=== PATIENT | male | born 1945 | race Caucasian/White ===

== ENCOUNTER 2021-02-19 14:14 | Observation (INO) ==
[2021-02-19] MEDS ORDERED: MAGNESIUM HYDROXIDE 30 ML ORAL.SUSP PO PRN (14:41)
[2021-02-19] MEDS ORDERED: morphine 4 MG/ML VIAL IV PRN (14:41)
[2021-02-19] MEDS ORDERED: ONDANSETRON 4 MG/2 ML VIAL IV PRN (14:41)
[2021-02-19] MEDS ORDERED: MAG HYDROX/AL HYDROX/SIMETH 30 ML ORAL.SUSP PO PRN (14:41)
[2021-02-19] MEDS ORDERED: oxyCODONE/APAP 5/325MG TABLET PO PRN (14:41)
[2021-02-19] MEDS: DEXTROSE 5%-1/2NS W/20MEQ KCL 1,000 ML IV SCH (15:30)
--- NOTE | 2021-02-19 15:53 | Urology History & Physical ---
HPI History of Present Illness Patient information: Note initiated : 02/19/21 at 3:46 pm Service Date, if different from initiated Date: [] Patient: Greg Proctor a 75 y/o M admitted on 02/19/21 for Gross Hematuria. Chief Complaint: [Gross hematuria with clot retention] History of present illness: Greg is a 75-year-old male with a history of urin gabriel retention and a suprapubic catheter. On January 30 I performed a transurethral resection of the prostate. In the office he passed a voiding trial. We left the suprapubic catheter in place for a full week to ensure that he did not need to use it before removing it. The suprapubic catheter was removed in the office on February 11. The patient resumed his Eliquis as he did not have any signs of bleeding. Last night the patient called me as well as several times this morning saying that he was having gross blood and difficulty emptying due to clot retention. He lives about an hour [place] a half away in [place]. He was in significant discomfort and I advised him to go to the closest emergency department and have them call me. At that ER they placed a 24 Kenyan catheter and drained 500 mL from the bladder with clot. The patient and his then drove here for further evaluation emergently. They presented to my office with dark red blood and clots in his drainage bag. In the office I performed hand irrigation and removed approximately 200 mL of clot from the catheter. I then exchanged the catheter for a 24 Kenyan three-way hematuria catheter with a 30 cc balloon. The balloon was inflated with 30 mL of sterile water was again irrigated and a few more clots were removed. The patient was then sent over to the hospital for admission overnight for continuous bladder irrigation as I do not wish him to travel home when he lives so far away. Review of Systems All systems: reviewed and no additional remarkable complaints except as stated Constitutional Constitutional: Present as per HPI; Absent chills, fever(s) and headache(s) Cardiovascular Cardiovascular: Absent chest pain at rest Genitourinary Genitourinary: change in urinary stream, difficulty urinating, hematuria and nocturia PFSH PFSH All Active Problems Gross hematuria (Acute) Urinary retention (Acute) BPH (benign prostatic hyperplasia) (Acute) Blocked suprapubic catheter (Chronic) DJD (degenerative joint disease) (Chronic) Malignant neoplasm (Chronic) Vitamin D deficiency (Acute) Hiatal hernia (Acute) Pain in right knee (Acute) Right hip pain (Acute) Inguinal pain (Acute) Sensorineural hearing loss (Acute) Male erectile disorder (Acute) GERD (gastroesophageal reflux disease) (Acute) Arrhythmia (Acute) Polyp of colon (Acute) Chang's esophagus (Acute) Chronic prostatitis (Acute) Elevated PSA (Acute) Medical History Arrhythmia Chang's esophagus Blocked suprapubic catheter BPH (benign prostatic hyperplasia) DJD (degenerative joint disease) Erectile disorder due to medical condition in male GERD (gastroesophageal reflux disease) Hiatal hernia Incontinence of urine Inguinal pain Male erectile disorder Malignant neoplasm Pain in right knee Polyp of colon Right hip pain Sensorineural hearing loss Vitamin D deficiency Surgical History History of colonoscopy History of total hip arthroplasty Right S/P hernia repair Family History Other No pertinent family history Social History marital status: occupational status: retired smoking status: Former smoker alcohol intake frequency: does not drink MEDS/ALLERGIES Home Medications and Allergies Home Medications Medication Instructions Recorded Confirmed Type omeprazole 20 mg capsule,delayed 20 mg PO QDAY 10/29/20 02/19/21 History release metoprolol succinate 25 mg 25 mg PO QDAY 11/01/20 02/19/21 History tablet,extended release 24 hr Allergies Allergy/AdvReac Type Severity Reaction Status Date / Time Iodinated Contrast Media Allergy Intermediate Rash Verified 02/11/21 10:21 Physical Examination Vital Signs Vital signs: Temp Pulse Resp BP Pulse Ox 97.4 F 75 16 126/82 97 02/19/21 15:00 02/19/21 15:00 02/19/21 15:00 02/19/21 15:00 02/19/21 15:00 General physical appearance General physical exam: well developed, well nourished and no distress Eyes Eye exam: PERRL ENT ENT exam: normal pinna and normal mucosa Head Head exam IM: Present atraumatic, normal inspection and normocephalic Neck Neck exam: trachea midline Cardiovascular Cardiovascular exam IM: Present normal rate and rhythm Respiratory Respiratory exam: normal respiratory effort and clear to auscultation Abdomen Abdomen: Present soft and non tender; Absent distended Genitourinary Genitourinary (Male): Present normal penis with no external lesions, testicles present and other (24 Kenyan three-way Kerns catheter in place with gross hematuria) Neurologic Neurologic: Present normal coordination and normal sensation Musculoskeletal Musculoskeletal: Present normal gait Psychiatric Psychiatric: Present oriented to time, oriented to person, oriented to place, speech is normal and memory intact Results Labs Result diagrams: 02/19/21 15:35 02/19/21 15:35 Labs: All other labs normal. A/P Narrative A/P Narrative: Greg is a 75-year-old male who is approximately 3 weeks status post transurethral resection of the prostate. Postoperatively he passed a voiding trial in the office. 1 week later we removed the suprapubic catheter and he did well until yesterday when he began to have gross hematuria and clot retention. He had restarted his Eliquis which likely made routine postoperative bleeding into something more. He was originally seen today in the emergency department in [place] where a 24 Kenyan two-way catheter was placed. He then presented to my office where I hand irrigated his bladder and exchanged the catheter for three-way Kerns catheter. Because he lives so far away I would like to admit him at least overnight for continuous bladder irrigation until the bleeding stops. He was on Eliquis which I asked him to hold as of yesterday. His last dose was approximately 24 hours ago. We will monitor his hemoglobin and hematocrit. We will provide continuous bladder irrigation and hand irrigation as needed. I will keep him n.p.o. after midnight just in case we need to go to the operating room tomorrow. Routine labs will be obtained. I have discussed this plan with the patient and his . Time Spent With Patient Time: Total time spent is greater than 50% in coordination of care (as documented) at patient's floor/unit and/or counseling patient: Total time spent with greater than 50% in coordination of care (as documented) at patient's floor/unit and/or counseling patient:: 25 - 35 minutes
[2021-02-19] MEDS: 0.9 % SODIUM CHLORIDE 10 ML SYRINGE IV SCH (20:42)
[2021-02-19 21:21] LABS: Hematocrit 38.5 % (40.1-51.0); Hemoglobin 12.4 g/dL (13.7-17.5); Mean Cell Volume 88.7 fL (80.0-100.0); Mean Corpuscular HGB Conc 32.2 g/dL (31.0-36.0); Mean Platelet Volume 10.3 fL (7.4-10.4); Platelet Count 237 K/mcL (140-440); RBC 4.34 M/mcL (4.63-6.08); Red Cell Distribution Width 13.6 % (11.5-14.5); WBC 8.3 K/mcL (4.5-11.0)
[2021-02-19 22:31] LABS: Blood Urea Nitrogen 16 mg/dL (8-23); Calcium 9.2 mg/dL (8.6-10.4); Carbon Dioxide 22 mmol/L (22-30); Chloride 96 mmol/L (96-108); Glomerular Filtration Rate 92; Glucose 90 mg/dL (70-105)
[2021-02-20] MEDS: 0.9 % SODIUM CHLORIDE 10 ML SYRINGE IV SCH ×3 (04:49→20:06)
--- NOTE | 2021-02-20 09:04 | Urology Progress Note ---
SUBJECTIVE Subjective Patient information: Note initiated : 02/20/21 at 9:01 am Service Date, if different from initiated Date: [] Patient: Greg Proctor 75 y/o M admitted on 02/19/21 for Gross Hematuria. Chief Complaint: [Gross hematuria] Principal diagnosis: Gross hematuria Interval history: The patient is admitted to the hospital yesterday afternoon for continuous bladder irrigation due to gross hematuria occurring approximately 3 weeks status post transurethral resection of the prostate. 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 Urine today is a clear light pink to red color with slow irrigation. He is feeling well. He has been n.p.o. overnight. Constitutional Vitals: Vital Signs Temp Pulse Resp BP Pulse Ox 97.8 F 56 L 14 123/77 96 02/20/21 06:40 02/20/21 06:40 02/20/21 06:40 02/20/21 06:40 02/20/21 06:40 Period Temp Pulse Resp BP Sys/Tavarez Pulse Ox Last 24 Hr 97.4 F-98 F 56-75 14-20 113-126/70-82 95-97 Intake and Output 02/19/21 02/20/21 02/20/21 21:59 05:59 13:59 Intake Total 3000 3200 Output Total 6050 Balance 3000 -2850 Weight 100.244 kg Intake & Output: Intake & Output 02/19/21 02/20/21 02/20/21 21:59 05:59 13:59 Intake Total 3000 3200 Output Total 6050 Balance 3000 -2850 Weight 100.244 kg Intake: Oral 200 CBI Fluid 3000 3000 Output: CBI Fluid 6050 Other: Urine Appearance Hematuria 3-way Urethral Clear Hematuria Uretheral (Kerns) Hematuria Small Blood Clots Urine Color Bright Red 3-way Urethral Blood Tinged Uretheral (Kerns) Dark Red Net CBI 3050 A/P Narrative A/P Narrative: Today I explained to the patient and his again that all patients after transurethral resection of the prostate will have some bleeding about 3 weeks after surgery. The area that is resected form scab when the scab forms off most people have transient bleeding for 1 to 2 days. In him this problem is been compounded by his increased activity and the fact that he restarted Eliquis. He was supposed to restart the Eliquis but he was supposed to perform only light activity. He has been n.p.o. overnight we discussed that we could go back to the operating room for fulguration of bleeding however every time I do your procedure new scab will form and when that falls off you will bleed again so this problem will likely recur. He stopped his Eliquis 24 hours ago. He takes about 48 hours for to get out of his system and therefore I believe that the bleeding will likely stop within 48 hours without intervention. I would like to keep him 1 more night with continuous irrigation. I am very hopeful that the bleeding will stop on its own by tomorrow and then we will be able to send him home. I will allow him to eat today. He and his are comfortable with this plan. Time Spent With Patient Time: Total time spent is greater than 50% in coordination of care (as documented) at patient's floor/unit and/or counseling patient: Total time spent with greater than 50% in coordination of care (as documented) at patient's floor/unit and/or counseling patient:: 15 - 24 minutes
[2021-02-20] MEDS: DEXTROSE 5%-1/2NS W/20MEQ KCL 1,000 ML IV SCH (11:09)
[2021-02-21] MEDS: 0.9 % SODIUM CHLORIDE 10 ML SYRINGE IV SCH (04:52)
[2021-02-21] MEDS: DEXTROSE 5%-1/2NS W/20MEQ KCL 1,000 ML IV SCH (07:15)
--- NOTE | 2021-02-21 07:17 | Urology Progress Note ---
SUBJECTIVE Subjective Patient information: Note initiated : 02/21/21 at 7:13 am Service Date, if different from initiated Date: [] Patient: Greg Proctor 75 y/o M admitted on 02/19/21 for Gross Hematuria. Chief Complaint: [Gross hematuria] Principal diagnosis: Gross hematuria Interval history: Greg is doing much better this morning. He is feeling well. Continuous bladder irrigation was run overnight and a slow drip in the urine this morning is clear yellow with some whitish debris. Constitutional Vitals: Vital Signs Temp Pulse Resp BP Pulse Ox 97.7 F 60 16 123/87 98 02/21/21 07:12 02/21/21 07:12 02/21/21 07:12 02/21/21 07:12 02/21/21 07:12 Period Temp Pulse Resp BP Sys/Tavarez Pulse Ox Last 24 Hr 97.4 F-98.2 F 55-73 14-17 122-127/77-87 94-98 Intake and Output 02/20/21 02/21/21 02/21/21 21:59 05:59 13:59 Intake Total 4810 4400 Output Total 4050 5100 Balance 760 -700 Weight 100.244 kg Intake & Output: Intake & Output 02/20/21 02/21/21 02/21/21 21:59 05:59 13:59 Intake Total 4810 4400 Output Total 4050 5100 Balance 760 -700 Weight 100.244 kg Intake: Oral 1810 500 CBI Fluid 3000 3900 Output: CBI Fluid 4050 5100 Other: Meal Dinner Percent of Meal Consumed 100% Feeding Ability Independent Urine Appearance Hematuria Urine Color 3-way Urethral [place] Net CBI 1050 600 General appearance: average body habitus, cooperative and no acute distress Head Head exam: Present atraumatic, normal inspection and normocephalic Neck Neck exam: Present normal inspection Respiratory Respiratory exam: Present normal respiratory exam and CTAB Cardiovascular Cardiovascular exam: Present normal rate and rhythm GI/Abdominal GI/Abdominal exam: Present soft; Absent distended and tenderness exam: Present normal inspection Expanded Exam Urine Appearance: Sediment Urine Color: Straw Neurological Exam Additional comments: Resting in bed Psychiatric Psychiatric exam: Present normal affect and normal mood Additional findings Additional findings: Three-way Kerns catheter remains in place and is draining well. A/P Narrative A/P Narrative: The urine is cleared after being on Eliquis for 48 hours. I will stop the irrigation this morning and check back with him in a few hours to e nsure that the urine remains clear. If it does remain clear he will likely go home today with the Kerns catheter for a few days. I will then remove the Kerns catheter in the office next week. We will reevaluate around around lunchtime. Time Spent With Patient Time: Total time spent is greater than 50% in coordination of care (as documented) at patient's floor/unit and/or counseling patient: Total time spent with greater than 50% in coordination of care (as documented) at patient's floor/unit and/or counseling patient:: 15 - 24 minutes
--- NOTE | 2021-02-21 07:19 | Urology Progress Note ---
SUBJECTIVE Subjective Patient information: Note initiated : 02/21/21 at 7:17 am Service Date, if different from initiated Date: [02/20/2021] Patient: Greg Proctor 75 y/o M admitted on 02/19/21 for Gross Hematuria. Chief Complaint: [Gross hematuria] Principal diagnosis: Gross hematuria Constitutional Vitals: Vital Signs Temp Pulse Resp BP Pulse Ox 97.7 F 60 16 123/87 98 02/21/21 07:12 02/21/21 07:12 02/21/21 07:12 02/21/21 07:12 02/21/21 07:12 Period Temp Pulse Resp BP Sys/Tavarez Pulse Ox Last 24 Hr 97.4 F-98.2 F 55-73 14-17 122-127/77-87 94-98 Intake and Output 02/20/21 02/21/21 02/21/21 21:59 05:59 13:59 Intake Total 4810 4400 1000 Output Total 4050 5100 Balance 760 -700 1000 Weight 100.244 kg Intake & Output: Intake & Output 02/20/21 02/21/21 02/21/21 21:59 05:59 13:59 Intake Total 4810 4400 1000 Output Total 4050 5100 Balance 760 -700 1000 Weight 100.244 kg Intake: IV 1000 Dextrose 5%-1/2Ns W/20Meq KCl 1 1000 ,000 ml @ 50 mls/hr IV .Q20H [facility] Rx#:[id number] Oral 1810 500 CBI Fluid 3000 3900 Output: CBI Fluid 4050 5100 Other: Meal Dinner Percent of Meal Consumed 100% Feeding Ability Independent Urine Appearance Hematuria Sediment Urine Color Straw 3-way Urethral [place] Net CBI 1050 600 A/P Narrative A/P Narrative: At around 11 AM on February 20 I performed hand irrigation of the patient's catheter with approximately 1 mL of sterile water via Tia syringe to ensure that there were no further clots. A few small clots were obtained but the urine ran clear to clear pink. We discussed keeping him at least another 24 hours to ensure that the urine clears once his Eliquis is out of his system. He agrees with this plan. Time Spent With Patient Time: Total time spent is greater than 50% in coordination of care (as documented) at patient's floor/unit and/or counseling patient:
[2021-02-21] MEDS ORDERED: OMEPRAZOLE 20 MG CAPSULE PO SCH (07:30)
[2021-02-21] MEDS ORDERED: TAMSULOSIN 0.4 MG CAPSULE PO SCH (09:00)
[2021-02-21] MEDS ORDERED: METOPROLOL SUCCINATE 25 MG TAB.XL.24H PO SCH (09:00)
[2021-02-21] MEDS ORDERED: SULFAMETHOXAZOLE/TRIMETHOPRIM 1 TABLET PO SCH (09:00)
[2021-02-21] MEDS ORDERED: FINASTERIDE 5 MG TABLET PO SCH (09:00)
--- NOTE | 2021-02-21 13:03 | Discharge Summary ---
Discharge Provider Provider Patient information: Note initiated : 02/21/21 at 12:57 pm Service Date, if different from initiated Date: [] Patient: Greg Proctor 75 y/o M admitted on 02/19/21 for Gross Hematuria. Chief Complaint: [Gross hematuria] Date of admission: 02/19/21 14:40 Discharge date: 02/21/21 Primary care physician: Umang Stone Admitting clinician: Dudley Ramey Attending physician on admission: Dudley Ramey Attending physician on discharge: Dudley Ramey Discharging clinician: Dudley Ramey COURSE Hospital Course Hospital course: The patient was admitted to the hospital for continuous bladder irrigation for hematuria that occurred 3 weeks status post TURP. The patient was on Eliquis. We held the Eliquis and once that wore off in 48 hours the hem aturia cleared the patient will be sent home on hospital day #3 with a Kerns catheter in place. He will continue to hold his Eliquis until follow-up with me early next week. Discharge diagnosis: Gross hematuria status post transurethral resection of the prostate. Reason for admission: Gross hematuria while on anticoagulation after TURP Procedures: Continuous bladder Pertinent studies/significant findings: None Complications: None Time Spent with Patient Time attestation: Total time spent providing and/or coordinating discharge services: Time spent: Less than 30 minutes Specific discharge activities: Light activity only. Physical Examination Vital Signs Vital signs: Temp Pulse Resp BP Pulse Ox 97.6 F 68 16 117/76 96 02/21/21 12:00 02/21/21 12:00 02/21/21 12:00 02/21/21 12:00 02/21/21 12:00 General physical appearance General physical exam: well developed, well nourished and no distress Eyes Eye exam: PERRL Head Head exam IM: Present atraumatic, normal inspection and normocephalic Neck Neck exam: trachea midline Respiratory Respiratory exam: normal respiratory effort Abdomen Abdomen: Present soft and non tender Genitourinary Genitourinary (Male): Present normal penis with no external lesions Neurologic Neurologic: Present normal coordination Musculoskeletal Musculoskeletal: Present normal gait Psychiatric Psychiatric: Present oriented to time, oriented to person, oriented to place and speech is normal Additional Findings Additional exam: Ureter is cleared in the tubing. Discharge Plan Patient/Caregiver Discharge Instructions Activity: as instructed and other Diet: Regular Diet Instructions: Kerns Catheter Placement and Care (DC), Urinary Leg Bag (GEN) Activity Restrictions/Additional Instructions: Light activity only light activity only until follow-up. Prescriptions: New sulfamethoxazole-trimethoprim [Bactrim DS] 800-160 mg tablet 1 tab PO BID Qty: 14 RF: 0 No Action omeprazole 20 mg capsule,delayed release(DR/EC) 20 mg PO QDAY RF: 0 Eliquis 5 mg Tablet 5 mg PO DAILY RF: 0 tamsulosin [Flomax] 0.4 mg Capsule 0.4 mg PO DAILY RF: 0 finasteride 5 mg Tablet 5 mg PO QDAY RF: 0 metoprolol succinate 25 mg tablet extended release 24 hr 25 mg PO QDAY RF: 0 Follow Up Plan Follow up with: Dudley Ramey MD [Physician] - (Follow up to be seen on Wednesday or Wednesday or . Please call the office early Wednesday morning.) Patient Disposition: Home, Self-Care Hospital Course: Greg was admitted to the hospital with gross hematuria approximately 3 weeks after transurethral section of the prostate. He had restarted his Eliquis on my advice but once bleeding recurred I asked him to hold it again. I hand irrigated his bladder and removed clot. Continuous bladder irrigation was then started. Once the Eliquis wore off in 48 hours the hematuria resolved. Plan of Treatment: The patient will go home with a Kerns catheter in place. He will be provided a leg bag and night bag. I will place him on Bactrim DS to prevent urinary tract infection. I will see him in the office on Wednesday or Wednesday for a voiding trial at which time if everything good. We will have him restart his Eliquis. Prognosis: Good Overall status at discharge: patient is progressing back to baseline Discharge Orders: Discharge Order (Routine); Ordered 02/21/21 Ordered By: Dudley Ramey Pending Pending Pending: Resuscitation Status Resuscitate (Full Code) Diet Regular Diet Start WedFeb 22 804 Finasteride (Finasteride 5 Mg Tablet) 5 mg PO QDAY PRABHU Last Admin: 02/21/21 08:08 Dose: 5 mg Documented by: [email or web address] Potassium Chloride/Dextrose/Sod Cl (Dextrose 5%-1/2ns W/20meq Kcl) 1,000 mls @ 50 mls/hr IV .Q20H [facility] Last Admin: 02/21/21 07:15 Dose: 50 mls/hr Documented by: Infusion: 02/21/21 07:09 Dose: 50 mls/hr Documented by: Admin: 02/20/21 11:09 Dose: 50 mls/hr Documented by: Infusion: 02/20/21 11:09 Dose: 50 mls/hr Documented by: Admin: 02/19/21 15:30 Dose: 50 mls/hr Documented by: MADELYN Metoprolol Succinate (Metoprolol Succinate 25 Mg Tab.Xl.24h) 25 mg PO QDAY [facility] Last Admin: 02/21/21 08:08 Dose: 25 mg Documented by: FRANKLIN Omeprazole (Omeprazole 20 Mg Capsule) 20 mg PO QAMAC [facility] Last Admin: 02/21/21 07:47 Dose: 20 mg Documented by: FRANKLIN Sodium Chloride (0.9 % Sodium Chloride 10 Ml Syringe) 10 ml IV Q8 [facility] Last Admin: 02/21/21 04:52 Dose: Not Given Documented by: Admin: 02/20/21 20:06 Dose: Not Given Documented by: Admin: 02/20/21 14:16 Dose: Not Given Documented by: Admin: 02/20/21 04:49 Dose: Not Given Documented by: Admin: 02/19/21 20:42 Dose: Not Given Documented by: RIVERA Tamsulosin HCl (Tamsulosin 0.4 Mg Capsule) 0.4 mg PO DAILY [facility] Last Admin: 02/21/21 08:09 Dose: 0.4 mg Documented by: FRANKLIN Trimethoprim/Sulfamethoxazole (Sulfamethoxazole/Trimethoprim 1 Tablet) 1 tab PO BID [facility]; Protocol Last Admin: 02/21/21 08:09 Dose: 1 tab Documented by: FRANKLIN Shift Summary 02/21/21 04:53 Shift Summary by Alisha Maharaj Primary Diagnosis: Gross hematuria Registration Status: IP OBS Day of Hospitalization: 02/19 Date of Surgery (if applicable): transurethral resection of prostate about 3wks ago. Pertinent Medical Hx/Issues : TURP 01/30, urinary retention, Afib - Eliquis, GERD, [place]UT[place] - Bilat hearing aids. Vital Signs : VSS on RA Neuro: A&OX4 DIET: NPO since MN in case of surgery. Ambulatory status: SBA Lines/Tubes: D5 1/2NS w/ 20K @ 50/hr into LFA Lab/Rad results: Void/BM: CBI at slow rate, output cl pink, no clots. Expected date of discharge: TBD Discharge Plan (needs, disposition, etc): Return home w/ when medically cleared. Initialized on 02/20/21 03:18 - END OF NOTE Initialized on 02/21/21 04:53 - END OF NOTE
== END 2021-02-21 13:40 | disposition home or self-care (01) ==
LOC: MEDSUR
PROVIDERS: ADMIT Urology; ATTEND Urology